=== PATIENT | female | born 1940 | race African-American/Black ===

== ENCOUNTER 2018-07-25 21:56 | Emergency (ER) | payer MEDICARE ==
[~2018-07-25] VITALS: Ht 162.6 cm; Wt 112.0 kg
[2018-07-25 22:03] VITALS: Ht 162.6 cm; Wt 112.0 kg
[2018-07-25 23:32] LABS: BASOPHIL % 0.5 % (0-2); PLATELET COUNT 202 x10^3mcL (130-400)
[2018-07-25 23:39] LABS: CALCIUM 8.9 mg/dL (8.5-10.1); CARBON DIOXIDE 25.2 mmol/L (21-32); CHLORIDE SERUM 98 mmol/L (98-107); CREATININE SERUM 1.2 mg/dL (0.6-1.0); GLUCOSE SERUM 99 mg/dL (74-106); POTASSIUM SERUM 3.4 mmol/L (3.5-5.1); SODIUM SERUM 136 mmol/L (136-145)
[2018-07-25 23:47] LABS: RED CELL DISTRIBUTION WIDTH 14.9 % (11.5-14.5)
[2018-07-25 23:49] LABS: ALKALINE PHOSPHATASE 101 U/L (46-116); ALT/SGPT 21 U/L (14-59); AST/SGOT 16 U/L (15-37); BILIRUBIN TOTAL 0.2 mg/dL (0.20-1.00); LIPASE 139 IU/L (73-393)
[2018-07-26 01:26] VITALS: BP 134/70
== END 2018-07-26 01:26 | disposition home or self-care (01) ==
LOC: ED 21:56
PROVIDERS: Emergency Medicine
DX: R10.12 Left upper quadrant pain (principal); R10.32 Left lower quadrant pain; R53.1 Weakness; I10 Essential (primary) hypertension; E11.9 Type 2 diabetes mellitus without complications
CPT/HCPCS: J0500; J2405

== ENCOUNTER 2019-03-20 22:00 | Emergency (ER) | payer OTHER ==
[~2019-03-20] VITALS: Ht 167.6 cm; Wt 109.8 kg
[2019-03-20 22:10] VITALS: Ht 167.6 cm; Wt 109.8 kg
[2019-03-21] VITALS: BP 151/42
== END 2019-03-21 00:09 | disposition home or self-care (01) ==
LOC: ED 22:00
DX: M25.561 Pain in right knee (principal); M25.562 Pain in left knee